=== PATIENT | male | born 1955 | race Caucasian/White ===

== ENCOUNTER 2017-11-12 19:07 | Emergency (ER) | payer MEDICAID ==
[~2017-11-12] VITALS: Ht 175.3 cm; Wt 90.3 kg
[2017-11-12 19:23] VITALS: Ht 175.3 cm; Wt 90.3 kg
[2017-11-12 21:39] VITALS: BP 126/92
== END 2017-11-12 21:39 | disposition home or self-care (01) ==
LOC: ED 19:07
DX: L03.114 Cellulitis of left upper limb (principal)